=== PATIENT | male | born 2005 | race Caucasian/White ===

== ENCOUNTER 2025-01-18 18:26 | Inpatient (IN) | payer BC, OTHER ==
[~2025-01-18] VITALS: Ht 165.1 cm; Wt 64.4 kg
[2025-01-18 19:09] LABS: PLATELET COUNT (AUTO) 298 K/uL (150-450); RED BLOOD CELL COUNT(AUTO) 5.66 MIL/uL (4.5-6.0); RED CELL DISTRIBUTION WIDTH 13.3 % (11.5-15.0); WHITE BLOOD COUNT (AUTO) 11.2 K/uL (4.3-11.0)
[2025-01-18] MEDS ORDERED: LORAZEPAM INJ 2 MG/ML VIAL ONE (19:13)
[2025-01-18] MEDS ORDERED: ONDANSETRON HCL/PF 4 MG/2 ML VIAL ONE (19:13)
[2025-01-18 19:23] LABS: ASPARTATE AMINOTRANSFERASE 22.0 U/L (15-37); CALCIUM, SERUM 9.0 mg/dL (8.5-10.1); CREATININE 1.0 mg/dL (0.6-1.3); SODIUM SERUM 136.0 mmol/L (136-145); TOTAL PROTEIN, SERUM 8.3 g/dL (6.4-8.2); UREA NITROGEN, BLOOD 11.0 mg/dL (7-18)
[2025-01-18] MEDS: ONDANSETRON HCL/PF - ER 4 MG/2 ML VIAL IV ONE (19:23)
[2025-01-18] MEDS: IV NS 0.9% 1,000 ML BAG IV ONE (19:23)
[2025-01-18] MEDS: LORAZEPAM INJ 2 MG/ML VIAL IV ONE (19:23)
[2025-01-18] MEDS ORDERED: POTASSIUM CHLORIDE 20 MEQ TAB.PRT.SR PO ONE (19:39)
[2025-01-18] MEDS: POTASSIUM CHLORIDE 20 MEQ TAB.PRT.SR PO ONE (19:47)
[2025-01-18] MEDS ORDERED: POTASSIUM CL. PREMIX PERIPHER. 200 ML ONE (19:49)
[2025-01-18] MEDS: POTASSIUM CL. PREMIX PERIPHER. 50 ML IV SCH (19:59)
[2025-01-18 20:10] VITALS: O2SAT 97
[2025-01-18] MEDS ORDERED: ACETAMINOPHEN 325 MG TABLET PO PRN (20:30)
[2025-01-18] MEDS ORDERED: MAG HYDROX/AL HYDROX/SIMETH 30 ML UDC PO PRN (20:30)
[2025-01-18] MEDS ORDERED: ONDANSETRON HCL/PF 4 MG/2 ML VIAL IVP PRN (20:30)
[2025-01-18] MEDS ORDERED: MAGNESIUM HYDROXIDE 30 ML UDC PO PRN (20:30)
[2025-01-18 21:00] VITALS: BP 122/70; TEMP 97.5; O2SAT 100
[2025-01-19] VITALS: BP 120/53; TEMP 97.5; O2SAT 99
[2025-01-19 04:30] VITALS: BP 86/51
[2025-01-19 04:55] VITALS: BP 104/54
[2025-01-19 06:18] LABS: PLATELET COUNT (AUTO) 231 K/uL (150-450); RED BLOOD CELL COUNT(AUTO) 5.01 MIL/uL (4.5-6.0); RED CELL DISTRIBUTION WIDTH 13.5 % (11.5-15.0); WHITE BLOOD COUNT (AUTO) 7.3 K/uL (4.3-11.0)
[2025-01-19 06:28] LABS: CALCIUM, SERUM 8.9 mg/dL (8.5-10.1); CREATININE 1.1 mg/dL (0.6-1.3); PHOSPHORUS 3.6 mg/dL (2.5-4.9); SODIUM SERUM 143.0 mmol/L (136-145); UREA NITROGEN, BLOOD 8.0 mg/dL (7-18)
[2025-01-19 08:00] VITALS: BP 104/51; TEMP 98.1; O2SAT 98
[2025-01-19] MEDS ORDERED: FLUO40CA49 PO (08:22)
[2025-01-19 11:26] LABS: CREATININE, URINE 20.7 MG/DL (30.0-125.0); POTASSIUM RNDM,URINE 16.0 mmol/L (25-125)
[2025-01-19 11:30] VITALS: BP 103/54; TEMP 98.2; O2SAT 100
[2025-01-19] MEDS ORDERED: MONT10TA22 PO (11:59)
[2025-01-19 12:12] LABS: APPEARANCE,URINE CLEAR (CLEAR); BLOOD, URINE NEGATIVE Ery/uL (NEGATIVE); LEUKOCYTE ESTERASE ,URINE TRACE (NEGATIVE); NITRITE, URINE NEGATIVE (NEGATIVE); UGLUCOSE NEGATIVE (NEGATIVE)
[2025-01-19 12:13] LABS: ADD URINE CULTURE NO; SQUAMOUS EPITHELIAL CELL,UR Rare /HPF (None Seen)
[2025-01-19] MEDS ORDERED: MONTELUKAST SODIUM (10MG) 10 MG TABLET PO SCH (22:00)
[2025-01-20] MEDS ORDERED: FLUOXETINE HCL 20 MG CAPSULE PO SCH (09:00)
== END 2025-01-19 14:25 | disposition home or self-care (01) | DRG 641 ==
LOC: ER 18:43 → TELE 20:19
PROVIDERS: ATTEND Nurse Practitioner Acute Care
DX: E87.6 Hypokalemia (principal); F41.9 Anxiety disorder, unspecified; J45.909 Unspecified asthma, uncomplicated; Z86.16 Personal history of COVID-19; Z79.899 Other long term (current) drug therapy
CPT/HCPCS: 36415; 71045-TC; 80048-TC; 80076-TC; 81001; 82570-TC; 83690-TC; 83735-TC; 83880; 84100-TC; 84133-TC; 84439-TC; 84443-TC; 84484-TC; 85025-TC; A4223; G0378; J2060; J2405; J3480; J7030